=== PATIENT | female | born 1970 | race Caucasian/White ===

== ENCOUNTER 2021-12-07 21:19 | Emergency (ER) | payer BC ==
[~2021-12-07] VITALS: Ht 157.5 cm; Wt 63.5 kg
[2021-12-07 21:28] VITALS: BP_SYST 172
--- NOTE | 2021-12-07 21:34 | NUR ---
PT NABILA, HERE WITH CHRONIC DRY COUGH X 1 MONTH, REPORTS TAKING COVID TEST 6 DAYS AGO-NEGATIVE. PT UNVACCINATED. RESP EVEN AND UNLABORED, ON RA @98%, AFEBRILE. PT SENT TO CAR, MAKE AND MODEL REQUESTED BY CN AND SENT OUT. PT AND INFORMED TO RETURN INSIDE IF SYMPTOMS PERSIST OR WORSEN.
--- NOTE | 2021-12-07 21:35 | NUR ---
COVID SWAB OBTAINED AND SENT TO LAB. PT PROVIDED WITH MASK, OXYGEN SATURATION AT 98%. PT WILL WAIT IN CAR PENDING COVID RESULTS. MD URIAS AWARE
--- NOTE | 2021-12-07 22:14 | NUR ---
chest xray complete, pt will await results
--- NOTE | 2021-12-07 22:31 | NUR ---
Patient to ER bed 8 to gown for evaluation. Side rails up. Report given to ANTHONY BALES
--- NOTE | 2021-12-07 22:40 | NUR ---
ER MD LUIS AT BEDSIDE EXAMINING PATIENT.
--- NOTE | 2021-12-08 00:18 | NUR ---
PATIENT RESTING IN BED. VSS. WILL CONTINUE TO MONITOR.
[2021-12-08] MEDS: predniSONE 20 MG TABLET PO ONE (01:01)
[2021-12-08] MEDS: IPRATROPIUM/ALBUTEROL SULFATE 3 ML AMPUL.NEB (DUONEB) INH ONE ×2 (01:11→02:38)
[2021-12-08] MEDS: IBUPROFEN 800 MG TABLET PO ONE (01:20)
--- NOTE | 2021-12-08 02:05 | NUR ---
RT AT BEDSIDE FOR BREATHING TREATMENT.
[2021-12-08] MEDS ORDERED: BENZ100C92 PO (02:14)
[2021-12-08 02:21] VITALS: BP_SYST 149
--- NOTE | 2021-12-08 02:21 | NUR ---
Patient given written and verbal discharge instructions and verbalizes understanding. ER MD LUIS discussed with patient the results and treatment provided. Patient in stable condition. ID arm band removed. Patient educated on pain management and to follow up with PMD. Pain Scale 2/10. Opportunity for questions provided and answered. Medication side effect fact sheet provided.
== END 2021-12-08 02:21 | disposition home or self-care (01) ==
LOC: SED 21:19
DX: J20.9 Acute bronchitis, unspecified (principal); Z20.822 Contact with and (suspected) exposure to COVID-19
CPT/HCPCS: 36415; 71046; 87426; 94640; 99284; J7512